=== PATIENT | male | born 1995 | race Caucasian/White ===

== ENCOUNTER 2019-01-16 15:11 | Emergency (ER) | payer MEDICAID ==
[~2019-01-16] VITALS: Ht 182.9 cm; Wt 69.4 kg
--- NOTE | 2019-01-16 15:38 | NUR ---
RN NOTES 70 Y/O FEMALE RECEIVED IN ROOM #1, A/Ox4, C/O ABDOMENAL PAIN 6/10 PAIN LEVEL, PA AT THE BEDSIDE TO SEE THE PT , VSS STABLE, CONTINUE TO MONTIOR .
[2019-01-16] MEDS ORDERED: ONDANSETRON HCL/PF 4 MG/2 ML VIAL ONE (15:43)
[2019-01-16] MEDS ORDERED: FAMOTIDINE/PF INJ 20 MG/2 ML VIAL IV ONE ×2 (15:43→16:00)
[2019-01-16] MEDS ORDERED: MAG HYDROX/AL HYDROX/SIMETH 30 ML UDC ONE (15:43)
[2019-01-16 15:54] LABS: BASOPHILS % (AUTO) 0.5 % (0.0-2.0); HEMATOCRIT 40 % (39-51); HEMOGLOBIN 14.8 g/dL (13.5-17.5); LYMPHOCYTES # (AUTO) 1.5 /CMM (0.8-4.8); LYMPHOCYTES % (AUTO) 15.9 % (20.0-44.0); MEAN CORPUSCULAR HGB CONC 37 g/dl (31.0-36.0); MEAN CORPUSCULAR VOLUME 88 fL (80-96); MONOCYTES # (AUTO) 1.2 /CMM (0.1-1.30); MONOCYTES % (AUTO) 13.1 % (2.0-12.0); NEUTROPHILS # (AUTO) 6.3 /CMM (1.8-8.9); NEUTROPHILS % (AUTO) 66.5 % (43.0-81.0); PLATELET COUNT (AUTO) 380 /CMM (150-450); RED BLOOD CELL COUNT(AUTO) 4.59 MIL/uL (4.5-6.0); WHITE BLOOD COUNT (AUTO) 9.5 K/uL (4.3-11.0)
[2019-01-16 15:59] LABS: CALCIUM, SERUM 8.7 mg/dL (8.5-10.1); CREATININE 0.7 mg/dL (0.6-1.3); POTASSIUM 3.9 mmol/L (3.5-5.1)
[2019-01-16] MEDS ORDERED: IV NS 0.9% 1,000 ML BAG IV ONE (16:00)
[2019-01-16] MEDS ORDERED: MAG HYDROX/AL HYDROX/SIMETH 30 ML UDC PO ONE (16:00)
[2019-01-16] MEDS ORDERED: ONDANSETRON HCL/PF 4 MG/2 ML VIAL IVP ONE (16:00)
[2019-01-16 16:05] LABS: ALBUMIN 4.1 g/dL (3.4-5.0); BILIRUBIN,DIRECT 0.3 mg/dL (0.0-0.2); BILIRUBIN,TOTAL 2.4 mg/dL (0.2-1.0); TOTAL PROTEIN, SERUM 7.2 g/dL (6.4-8.2)
--- NOTE | 2019-01-16 16:35 | NUR ---
RN NOTES PA AT THE BEDSIDE SEEING THE PT. VSS STABLE,
[2019-01-16 16:55] VITALS: BP 113/65
--- NOTE | 2019-01-16 16:57 | NUR ---
RN NOTES DISCHARG INSTRUCTION GIVEN , PT VERBELIZES UNDERSTANDING , LEFT FOREARM IV D/CHUNG, VSS STABLE, PT LEFT THE ER AMBULATORY ACCOMPANIED BY HIS FRIEND IN STABLE CONDITION .
== END 2019-01-16 16:56 | disposition home or self-care (01) ==
LOC: ER 15:11
DX: K29.70 Gastritis, unspecified, without bleeding (principal); F41.9 Anxiety disorder, unspecified; F32.9 Major depressive disorder, single episode, unspecified; Z90.81 Acquired absence of spleen; Z90.49 Acquired absence of other specified parts of digestive tract; Z87.11 Personal history of peptic ulcer disease
CPT/HCPCS: 36415; 80048; 80076; 83690; 85025; 96361; 96374; 96375; 99283; J2405; J3490; J7030